=== PATIENT | male | born 1935 | race Caucasian/White ===

== ENCOUNTER 2020-04-15 09:11 | Inpatient (IN) | payer OTHER, MEDICARE ==
[~2020-04-15] VITALS: Ht 175.3 cm; Wt 105.0 kg
[2020-04-15 09:50] LABS: BASOPHILS # (AUTO) 0.1 X10'3 (0-0.2); BASOPHILS % (AUTO) 0.8 % (0-1); EOSINOPHILS # (AUTO) 0.1 X10'3 (0-0.9); EOSINOPHILS % (AUTO) 1.4 % (0-6); HEMATOCRIT 40.1 % (42.0-52.0); HEMOGLOBIN 13.9 g/dl (14.0-17.9); LYMPHOCYTES # (AUTO) 1.6 X10'3 (1.1-4.8); LYMPHOCYTES % (AUTO) 19.9 % (21-51); MEAN CORPUSCULAR HEMOGLOBIN 32.3 PG (27.0-31.0); MEAN CORPUSCULAR HGB CONC 34.6 g/dL (33.0-36.5); MEAN CORPUSCULAR VOLUME 93.3 FL (78-98); MEAN PLATELET VOLUME 6.1 FL (7.4-10.4); MONOCYTES # (AUTO) 0.6 X10'3 (0-0.9); MONOCYTES % (AUTO) 6.9 % (2-12); NEUTROPHILS # (AUTO) 5.8 X10'3 (1.8-7.7); PLATELET COUNT 303 X10'3 (140-440); RED CELL DISTRIBUTION WIDTH 14.2 % (11.5-14.5); WHITE BLOOD COUNT 8.2 X10'3 (4.5-11.0)
[2020-04-15 10:04] LABS: ALANINE AMINOTRANSFERASE 23 U/L (12-78); ALBUMIN 3.8 G/DL (3.4-5.0); ALKALINE PHOSPHATASE 95 IU/L (46-116); ANION GAP 8 (8-16); ASPARTATE AMINO TRANSFERASE 13 U/L (10-37); BILIRUBIN,TOTAL 0.5 MG/DL (0.1-1.0); BLOOD UREA NITROGEN 12 MG/DL (7-18); BUN/CREATININE RATIO 12.6 (5.4-32.0); CALCIUM 8.9 MG/DL (8.5-10.1); CHLORIDE 102 MMOL/L (99-107); CREATININE 0.95 MG/DL (0.60-1.10); GLUCOSE 199 MG/DL (70-104); PARTIAL THROMBOPLASTIN TIME 27 SECONDS (22-32); POTASSIUM 4.3 MMOL/L (3.5-5.1); SODIUM 139 MMOL/L (135-145); TOTAL CARBON DIOXIDE 29.4 MMOL/L (24-32); TOTAL PROTEIN 7.6 G/DL (6.4-8.2); eGFR 76 ML/MIN
[2020-04-15 10:09] LABS: TROPONIN I < 0.04 NG/ML (0.0-0.05)
[2020-04-15] MEDS ORDERED: iohexol 350MG/ML 100ml bottle IV ONE (10:27)
[2020-04-15] MEDS ORDERED: aspirin 81mg tab.chew PO ONE (10:30)
[2020-04-15] MEDS ORDERED: OMEP40CA13 PO (10:54)
[2020-04-15] MEDS ORDERED: ondansetron/PF 4mg/2ml inj IV PRN (11:10)
[2020-04-15] MEDS ORDERED: acetaminophen 325mg tablet PO PRN (11:10)
[2020-04-15] MEDS ORDERED: magnesium hydroxide 30ml (MOM) UD suspension PO PRN (11:10)
[2020-04-15] MEDS ORDERED: mag hydrox/Alum hydrox/simeth 30ml oral suspension PO PRN (11:10)
[2020-04-15 11:30] LABS: CHOL/HDL RATIO 5.1 (0.00-4.99); CHOLESTEROL 224 MG/DL (0-200); HDL CHOLESTEROL 44 MG/DL (35-60); LDL CHOLESTEROL 159 MG/DL (50-100); TRIGLYCERIDES 132 MG/DL (20-135)
--- NOTE | 2020-04-15 13:31 | NUR ---
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
--- NOTE | 2020-04-15 14:32 | NUR ---
DR GOMEZ IN TO ASSESS PATIENT AT THIS TIME, PENDING ADMISSION R/T CTA RESULTS, MAREN RUBY COORDINATING PLAN OF CARE, KAROL LAMBERT.
--- NOTE | 2020-04-15 14:49 | NUR ---
Call to KARL Luis to inform patient is going to MRI prior to floor.
[2020-04-15] MEDS ORDERED: clopidogrel 300mg tablet PO ONE (14:50)
[2020-04-15 15:42] VITALS: BP 178/81
[2020-04-15] MEDS: normal saline 1000ml 1,000 ML IV SCH ×2 (17:05→21:10)
[2020-04-15 18:00] VITALS: BP 169/76
[2020-04-15 19:00] VITALS: BP 154/87
[2020-04-15] MEDS: heparin, porcine 5000 units/ml vial SQ SCH (20:02)
[2020-04-15 22:00] VITALS: BP 161/75
[2020-04-16 02:00] VITALS: BP 159/80
[2020-04-16 06:16] LABS: ALBUMIN 3.3 G/DL (3.4-5.0); ANION GAP 6 (8-16); BLOOD UREA NITROGEN 8 MG/DL (7-18); BUN/CREATININE RATIO 9.8 (5.4-32.0); CALCIUM 8.4 MG/DL (8.5-10.1); CHLORIDE 103 MMOL/L (99-107); CREATININE 0.82 MG/DL (0.60-1.10); GLUCOSE 194 MG/DL (70-104); POTASSIUM 3.9 MMOL/L (3.5-5.1); SODIUM 139 MMOL/L (135-145); TOTAL CARBON DIOXIDE 29.8 MMOL/L (24-32); eGFR 90 ML/MIN
--- NOTE | 2020-04-16 06:18 | NUR ---
Problems reprioritized. Patient report given, questions answered & plan of care reviewed with KARL CAMPA.
[2020-04-16 06:51] LABS: BASOPHILS % (AUTO) 0.6 % (0-1); EOSINOPHILS # (AUTO) 0.4 X10'3 (0-0.9); EOSINOPHILS % (AUTO) 6.2 % (0-6); HEMATOCRIT 37.2 % (42.0-52.0); HEMOGLOBIN 12.5 g/dl (14.0-17.9); LYMPHOCYTES # (AUTO) 1.7 X10'3 (1.1-4.8); LYMPHOCYTES % (AUTO) 25.3 % (21-51); MEAN CORPUSCULAR HEMOGLOBIN 31.1 PG (27.0-31.0); MEAN CORPUSCULAR HGB CONC 33.5 g/dL (33.0-36.5); MEAN CORPUSCULAR VOLUME 92.8 FL (78-98); MEAN PLATELET VOLUME 6.3 FL (7.4-10.4); MONOCYTES # (AUTO) 0.5 X10'3 (0-0.9); MONOCYTES % (AUTO) 7.3 % (2-12); NEUTROPHILS # (AUTO) 4.1 X10'3 (1.8-7.7); NEUTROPHILS % (AUTO) 60.6 % (42-75); PLATELET COUNT 266 X10'3 (140-440); RED BLOOD COUNT 4.01 X10'6 (4.70-6.10); RED CELL DISTRIBUTION WIDTH 14.2 % (11.5-14.5); WHITE BLOOD COUNT 6.8 X10'3 (4.5-11.0)
--- NOTE | 2020-04-16 07:08 | NUR ---
Page Sent promotional table spacer PAGER ID: [phone] MESSAGE: [id number] MelizaTopher musa BP 201/90 Hr 64 O2 94. Magi report wanted under 160 SBP. pt not on any bp lowering meds #0017 Janelle MONTES [X]
[2020-04-16] MEDS: normal saline 1000ml 1,000 ML IV SCH ×2 (07:10→17:10)
[2020-04-16] MEDS: clopidogrel 75mg tablet PO SCH (07:50)
[2020-04-16] MEDS: heparin, porcine 5000 units/ml vial SQ SCH ×2 (07:50→19:26)
[2020-04-16] MEDS: pantoprazole 40mg Tablet.DR PO SCH (07:50)
[2020-04-16] MEDS: aspirin 81mg tablet.DR PO SCH (07:50)
[2020-04-16] MEDS: lisinopril 10 MG tablet PO SCH (09:46)
[2020-04-16] MEDS: atorvastatin 20mg tablet PO SCH (15:34)
[2020-04-16 18:00] VITALS: BP 174/84
[2020-04-16 22:00] VITALS: BP 142/72
[2020-04-17 02:28] VITALS: BP 157/65
[2020-04-17 06:00] VITALS: BP 158/75
--- NOTE | 2020-04-17 06:36 | NUR ---
Problems reprioritized. Patient report given, questions answered & plan of care reviewed with KARL DOBBS.
[2020-04-17 06:38] LABS: BASOPHILS % (AUTO) 0.5 % (0-1); EOSINOPHILS # (AUTO) 0.3 X10'3 (0-0.9); EOSINOPHILS % (AUTO) 4.5 % (0-6); HEMATOCRIT 37.6 % (42.0-52.0); HEMOGLOBIN 12.7 g/dl (14.0-17.9); LYMPHOCYTES # (AUTO) 1.7 X10'3 (1.1-4.8); LYMPHOCYTES % (AUTO) 25.5 % (21-51); MEAN CORPUSCULAR HEMOGLOBIN 31.4 PG (27.0-31.0); MEAN CORPUSCULAR HGB CONC 33.9 g/dL (33.0-36.5); MEAN CORPUSCULAR VOLUME 92.4 FL (78-98); MEAN PLATELET VOLUME 6.1 FL (7.4-10.4); MONOCYTES # (AUTO) 0.6 X10'3 (0-0.9); MONOCYTES % (AUTO) 8.1 % (2-12); NEUTROPHILS # (AUTO) 4.2 X10'3 (1.8-7.7); NEUTROPHILS % (AUTO) 61.4 % (42-75); PLATELET COUNT 276 X10'3 (140-440); RED BLOOD COUNT 4.06 X10'6 (4.70-6.10); WHITE BLOOD COUNT 6.8 X10'3 (4.5-11.0)
[2020-04-17 06:40] LABS: HEMOGLOBIN A1C 9.1 % (4.5-6.2)
[2020-04-17 06:59] LABS: ALBUMIN 3.2 G/DL (3.4-5.0); ANION GAP 5 (8-16); BLOOD UREA NITROGEN 10 MG/DL (7-18); BUN/CREATININE RATIO 11.2 (5.4-32.0); CALCIUM 9.2 MG/DL (8.5-10.1); CHLORIDE 104 MMOL/L (99-107); CREATININE 0.89 MG/DL (0.60-1.10); GLUCOSE 212 MG/DL (70-104); SODIUM 139 MMOL/L (135-145); TOTAL CARBON DIOXIDE 30.2 MMOL/L (24-32); eGFR 82 ML/MIN
[2020-04-17] MEDS: clopidogrel 75mg tablet PO SCH (07:25)
[2020-04-17] MEDS: atorvastatin 20mg tablet PO SCH (07:25)
[2020-04-17] MEDS: aspirin 81mg tablet.DR PO SCH (07:25)
[2020-04-17] MEDS: pantoprazole 40mg Tablet.DR PO SCH (07:25)
[2020-04-17] MEDS: heparin, porcine 5000 units/ml vial SQ SCH (07:26)
[2020-04-17] MEDS: lisinopril 10 MG tablet PO SCH (07:29)
[2020-04-17] MEDS: normal saline 1000ml 1,000 ML IV SCH (08:42)
[2020-04-17] MEDS ORDERED: amLODIPine 5mg tablet PO ONE (09:15)
[2020-04-17 10:00] VITALS: BP 139/64
--- NOTE | 2020-04-17 10:34 | NUR ---
PAGER ID: [phone] MESSAGE: [id number] Yusra Obando- patient A1C 9.1. Am blood sugar 233. Patient controls DM @ home with "Diet". Martine [id number]
[2020-04-17] MEDS ORDERED: LISI10TA4 PO (10:54)
[2020-04-17] MEDS ORDERED: CLOP75TA35 PO (10:54)
[2020-04-17] MEDS ORDERED: ASPI-1071 PO (10:54)
[2020-04-17] MEDS ORDERED: NOR5T PO (10:54)
[2020-04-17] MEDS ORDERED: ATOR20TA66 PO (10:54)
[2020-04-17 11:09] VITALS: BP_SYST 160
[2020-04-17] MEDS ORDERED: GLYB2.5T4 PO (11:14)
--- NOTE | 2020-04-17 11:18 | NUR ---
Spoke with MD Payan, got orders for po antidiabetics. Got an order for lancets, glucometer and strips. Called dietitian Gianni for D/C education regaurding DM2.
--- NOTE | 2020-04-17 11:46 | NUR ---
DM Consult: Pt hx DM diet controlled to start on medications following this admit per RN. A1C 9.1 this admit. Pt seen by RD for written/verbal DM ed w/ RD contact information provided. RD encouraged pt to contact dietitian's office if further questions/concerns. To f/u 04/20 for initial assessment. Addendum: 04/17/20 at [address] Amended: Links added.
--- NOTE | 2020-04-17 13:03 | NUR ---
PIV removed cannula intact. Patient ready for D/C, all belongings gathered and sent home with patient. Prescription for new glucometer and supplies given to patient. Discharge instructions given to patient. All belongings gathered and sent home with patient.
[2020-04-18] MEDS ORDERED: amLODIPine 5mg tablet PO SCH (08:00)
== END 2020-04-17 12:55 | disposition home or self-care (01) | DRG 66 ==
LOC: ER 09:12 → ED HOLD 11:07 → ORTHO 4S 15:45
PROVIDERS: ADMIT Family Medicine; ATTEND Family Medicine
DX: I63.513 Cerebral infarction due to unspecified occlusion or stenosis of bilateral middle cerebral arteries (principal); E78.5 Hyperlipidemia, unspecified; Z87.891 Personal history of nicotine dependence; E11.9 Type 2 diabetes mellitus without complications; K21.9 Gastro-esophageal reflux disease without esophagitis; Z90.49 Acquired absence of other specified parts of digestive tract; Z88.8 Allergy status to other drugs, medicaments and biological substances; Z88.1 Allergy status to other antibiotic agents; Z91.010 Allergy to peanuts
CPT/HCPCS: 36415; 70450; 70496; 70498; 70544; 70551; 71045; 80048; 80053; 80061; 82948; 83036; 84484; 85025; 85610; 85730; 87081; 92508; 92616; 93005; 93306; 93308; 93880; 97161; 99285; G0378; J1644; J7030; Q9967